=== PATIENT | male | born 1960 | race Caucasian/White ===

== ENCOUNTER 2021-04-05 11:20 | Emergency (ER) | payer OTHER ==
[~2021-04-05] VITALS: Ht 162.6 cm; Wt 59.0 kg
[2021-04-05 11:40] LABS: ABSOLUTE NEUTROPHILS 4.8 thou/uL (1.4-8.2); BASOPHILS 0.5 % (0.0-2.0); EOSINOPHILS 0.7 % (0.0-3.0); HEMATOCRIT 45.5 % (42.0-52.0); HEMOGLOBIN 15.2 gm/dL (14.0-18.0); LYMPHOCYTES 18.4 % (24.0-44.0); MCH 30.1 pg (26.0-34.0); MCHC 33.4 g/dL (28.0-37.0); MCV 90.1 fL (80.0-100.0); MONOCYTES 12.6 % (1.0-8.0); PLATELET COUNT 318 thou/uL (150-400); POLYS 67.8 % (36.0-66.0); RBC 5.05 mil/uL (4.50-6.00); RDW 13.9 % (10.5-14.5); WBC 7.1 thou/uL (4.0-11.0)
[2021-04-05 11:52] LABS: CALCIUM 9.3 mg/dL (8.5-10.1); CREATININE 1.2 mg/dL (0.7-1.3); POTASSIUM 4.3 mmol/L (3.5-5.1)
[2021-04-05 11:59] LABS: ALBUMIN 4.4 g/dL (3.4-5.0); TOTAL BILIRUBIN 0.8 mg/dL (0.2-1.0); TOTAL PROTEIN 8.1 g/dL (6.4-8.2)
[2021-04-05 12:12] LABS: URINE BILIRUBIN NEGATIVE (Negative); URINE BLOOD 2+ (Negative); URINE CLARITY CLEAR; URINE COLOR YELLOW; URINE GLUCOSE-RANDOM* NEGATIVE (Negative); URINE KETONES TRACE (Negative); URINE LEUKOCYTES-REFLEX NEGATIVE (Negative); URINE NITRITE-REFLEX NEGATIVE (Negative); URINE PROTEIN (DIPSTICK) NEGATIVE (Negative); URINE SPECIFIC GRAVITY >= 1.030 (1.005-1.035); URINE UROBILINOGEN 0.2 E.U./dl (0.2-1.0)
[2021-04-05 12:19] LABS: BACTERIA-REFLEX None Seen /HPF (None Seen); CRYSTALS None Seen /LPF (None Seen); SQUAMOUS None Seen /LPF (0-3); URINE RBC 1-2 Rare /HPF (NONE SEEN); URINE WBC-REFLEX None Seen /HPF (0-5)
[2021-04-05 17:50] VITALS: BP 177/84
--- NOTE | 2021-04-07 12:17 | EKG ---
[address] [place] [address] ELECTROCARDIOGRAM REPORT Name: BRAD WEAVERMATIAS [place] Room #: DEP [facility]#: [id number] Admission: 04/05/21 Attend Phys: Discharge: 04/05/21 Date of : 64 Report #: [id number] [facility] ED Test Date: 2021-04-05 Test Time: 11:30:29 Pat Name: YENI WEAVER Department: Room: Gender: Training Engineer: LAVERNE : 1960 Requested By: Amy Lindsay Order Number: [id number] MD: Mateo Carlson Measurements Intervals [place] Rate: 61 P: 55 OR: 64 QRS: 27 QRSD: 109 T: 92 QT: 383 QTc: 386 Interpretive Statements Sinus rhythm Nonspecific T abnormalities, lateral leads No previous ECG available for comparison Electronically Signed On 04-07-2021 12:16:59 CDT by Mateo Carlson [email or web address] <ELECTRONICALLY SIGNED> By: Mateo Carlson MD, [facility] 04/07/21 1216 1130 1130 Mateo Carlson MD, FACC /EPI
== END 2021-04-05 17:50 | disposition short-term general hospital (02) ==
LOC: ER 11:20
PROVIDERS: Nurse Practitioner Family
DX: G93.89 Other specified disorders of brain (principal); Z20.822 Contact with and (suspected) exposure to COVID-19